=== PATIENT | male | born 2000 | race Caucasian/White ===

== ENCOUNTER 2024-05-24 19:23 | Emergency (ER) | payer MEDICAID, SELFPAY ==
[2024-05-24 19:28] VITALS: BP 147/84; PULSE 106; RESP 20; TEMP 37.5; O2SAT 95
--- NOTE | 2024-05-24 19:30 | DI.RAD_ITS ---
Exam(s) XR CHEST 2V PA LATERAL EXAM: XR CHEST 2V PA LATERAL CLINICAL HISTORY: cough TECHNIQUE: 2D digital imaging was performed of the chest. Images were obtained. PA and lateral v iews were obtained. COMPARISON: No exams were available for comparison FINDINGS: MEDIASTINUM: Normal. HEART: Normal. PULMONARY VASCULATURE: Normal. LUNGS: There is poor inspiration with crowding of the pulmonary vessels. No focal consolidating infi ltrates are seen. There is mild prominence of the interstitium which may be related to the poor insp iration. PLEURAL SPACE: No pleural effusion or pneumothorax. BONE:Within normal limits for the patient's age. OTHER FINDINGS:Normal. IMPRESSION: No definite acute pulmonary process. No focal consolidating infiltrates are seen. If symptoms persi st, a repeat chest x-ray with PA and lateral views should be obtained. DATA REPOSITORY: RADIATION DOSE DELIVERED:
[2024-05-24 19:31] VITALS: BP 147/84; PULSE 106; RESP 20; TEMP 37.5; O2SAT 95
--- NOTE | 2024-05-24 19:45 | W.ED.GENAD ---
Discharge Plan Disposition Patient Disposition: Home Condition: Stable Discharge Details Clinical Impression: Influenza A Primary Care Provider: None,None ED Provider: Juan Mccallum Home Meds and New Rx's Prescriptions: New ondansetron 4 mg tablet,disintegrating 4 mg PO Q8H PRN (Reason: nausea and vomiting) Qty: 30 0RF benzonatate 100 mg capsule 100 mg PO BID-TID PRNQty: 7 0RF Discharge Instructions Additional Instructions: You are positive for influenza A. Make sure you are complaining of fluids to stay hydrated. If not improving within a week follow-up primary care provider in [place]. You can take 1000 mg of acetaminophen and 600 mg of ibuprofen every 6 hours as needed. If you feel more ill or have severe worsening shortness of breath return to the emergency department for reevaluation HPI General Mode of arrival: ambulatory. Date/Time Provider Initiated Documentation: 05/24/24 19:38. Limitations to Documentation: no limitations. Information obtained by: patient. History of Present Illness 23 year old M presents to the emergency department with the chief complaint of cough and body aches, described as moderate, Patient started experiencing this day(s) (3) and it has been constant. No relieving factors improve symptom(s), No exacerbating factors reported . Patient notes fever/chills and nausea/vomiting. Patient did receive the following treatments prior to arrival, none Related Data Home Medications ?Medication ?Instructions ?Recorded ?Confirmed benzonatate 100 mg capsule 100 mg PO BID-TID PRN #7 caps 05/24/24 ondansetron 4 mg disintegrating 4 mg PO Q8H PRN nausea and 05/24/24 tablet vomiting #30 tabs Previous Rx's ?Medication ?Instructions ?Recorded benzonatate 100 mg capsule 100 mg PO BID-TID PRN #7 caps 05/24/24 ondansetron 4 mg disintegrating 4 mg PO Q8H PRN nausea and 05/24/24 tablet vomiting #30 tabs Allergies Allergy/AdvReac Type Severity Reaction Status Date / Time No Known Allergies Allergy Unverified 05/24/24 19:32 General Stated Complaint: RespSymp EBONIE: 3 Review of Systems All systems reviewed & are unremarkable except as noted in HPI and below Constitutional Constitutional: Reports chills, Reports fever(s) and Denies weakness Cardiovascular Cardiovascular: Denies chest pain and Denies dyspnea Respiratory Respiratory: Reports cough and Denies dyspnea Gastrointestinal Gastrointestinal: Denies abdominal pain, Reports nausea and Reports vomiting Neurologic Neurologic: Denies weakness Exam Const General: no acute distress Orientation: alert HENID Head: normal to inspection Ears: external ears normal General nose exam: external nose normal Mouth: moist mucous membranes Eyes General: appearance normal, both eyes and all related structures Neck Neck: normal visual inspection Resp Effort & Inspection: normal respiratory effort and able to speak in complete sentences Auscultation: clear to auscultation bilaterally Cardio Jugular venous pressure: no JVD Rate: regular rate Heart Sounds: no murmurs GI Palpation: soft and nontender Skin General skin exam: no rashes or lesions noted Neuro General: patient alert and patient oriented x3 Extrem General: normal to inspection Psych Mental Status: mental status grossly normal Course Vital Signs Vital signs: Vital Signs Temperature 37.5 C 05/24/24 19:28 Pulse 106 H 05/24/24 19:28 Respiratory Rate 20 05/24/24 19:28 Blood Pressure 147/84 H 05/24/24 19:28 Pulse Oximetry 95 05/24/24 19:28 Temperature 37.5 C 05/24/24 19:31 Pulse 106 H 05/24/24 19:31 Respiratory Rate 20 05/24/24 19:31 Blood Pressure 147/84 H 05/24/24 19:31 Blood Pressure Position Sitting 05/24/24 19:31 Pulse Oximetry 95 05/24/24 19:31 Oxygen Delivery Method Room Air 05/24/24 19:31 Oxygen Flow Rate 0 05/24/24 19:31 Medical Decision Making 23-year-old male states he has no chronic medical problems comes in with several days of cough and intermittent fevers to 101 nausea vomiting. He also notes body aches. He denies any IV drug use, neck stiffness, difficulty breathing. He is well-appearing on exam speaking full sentences. He has clear rhinorrhea, clear lung sounds, no JVD, no abdominal tenderness, no leg swelling. I suspect viral illness given his body aches and cough and fever, will check COVID test and also obtain a chest x-ray history of 2 days of treatment reassess. Given lack of abdominal tenderness I do not surgical pathology and do not feel any imaging of his abdomen is indicated. Patient stable, x-ray on my read is negative. Patient is positive for the flu. He is stable for discharge advised follow-up with his PCP if not improving and return precautions given Differential Diagnosis Differential Diagnosis: Flu, COVID, pneumonia Quality:SDOH Health Related Social Needs: No Data to Display PFSH All Active Problems (Updated 05/24/24 @ 20:13 by Juan Mccallum MD) Influenza A (Acute) Medical History Cleft lip and cleft palate Surgical History Circumcision Myringotomy w/ PE (pressure equalizing) tubes 2001 Repair, Cleft Lip 2001 Repair, Cleft Palate with bone graft 2001 Family History Mother No problems noted. Father Asthma outgrown Other Diabetes mat and pat sides Essential hypertension MGM, pat uncle Personal history of malignant neoplasm mat side-lymphoma,breast,colon, paternal side-prostate Heart disease mat and pat sides Arterial ischemic stroke maternal side Social History Smoking risk assessment performed?: No PAWSS Have you Been Recently Intoxicated or Drunk Within the Last 30 days?: No Have you Ever Experienced Previous Episodes of Alcohol Withdrawal?: No Have you ever Experienced Withdrawal Seizures?: No Have you ever Experienced Delirium Tremens(DT)s?: No Have you ever undergone Alcohol Rehabilitation Treatment (i.e, inpt ot outpatient treatment programs)?: No Have you ever Experienced Blackouts?: No Have you ever Combined Alcohol with other Downers within the last 90 days?: No Have you ever Combined Alcohol with any other Substance of Abuse during the last 90 days?: No Positive Blood Alcohol level on Presentation? [PCS.BAL]: No Evidence of Increased Autonomic Activity (i.e. HR>120, tremor, sweating, agitation, nausea)?: No Result: 0
[2024-05-24] MEDS: Ondansetron O.D.T. 4 MG TABEF PO (19:48)
[2024-05-24] MEDS: Benzonatate 100 MG CAP PO (20:19)
[2024-05-24] MEDS: Acetaminophen 500 MG TAB 1000 MG PO (20:19)
[2024-05-24] MEDS: Ondansetron O.D.T. 4 MG TABEF, 3 TABS/BTL PO (20:19)
--- NOTE | 2024-05-24 21:05 | DI.VRAD_ITS ---
PROCEDURE INFORMATION: Exam: XR Chest Exam date and time: 05/24/2024 7:52 PM Age: 23 years old Clinical indication: Cough TECHNIQUE: Imaging protocol: Radiologic exam of the chest. Views: 2 views. COMPARISON: No relevant prior studies available. FINDINGS: Lungs: No pulmonary consolidation is seen. Pleural spaces: No pleural effusion or pneumothorax is demonstrated. Heart/Mediastinum: The heart appears normal in size. Bones/joints: The visualized bony structures appear grossly intact. IMPRESSION: No active disease is seen in the chest. Dictated and Authenticated by: Jorge Clifton MD. Orderin Alessio Martinez MD
== END 2024-05-24 20:20 | disposition home or self-care (01) ==
PROVIDERS: Emergency Provider Emergency Medicine
DX: J10.1 Influenza due to other identified influenza virus with other respiratory manifestations (principal)
CPT/HCPCS: 87426; 99284; 71046; 99283